=== PATIENT | male | born 1970 | race Caucasian/White ===

== ENCOUNTER → 2018-05-29 | Outpatient (CLI) | payer BC ==
--- NOTE | 2018-05-29 09:15 | RAD ---
Abdominal ultrasound dated 05/29/2018. No comparison available. CLINICAL INDICATION: Abdominal pain and distention. FINDINGS: Liver is of diffuse increased echogenicity, compatible with fatty infiltration. No apparent hepatic mass. Intrahepatic and extra hepatic biliary tree normal in caliber. The common bile duct measures 3 mm. Gallbladder normal in size and echogenicity. No gallbladder wall thickening or pericholecystic fluid. No gallstones are seen. Right kidney measures 10.5 cm in length. Left kidney measures 10.5 cm in length. No hydronephrosis. Spleen is homogeneous in echogenicity and measures 9.6 cm longitudinal. Limited visualized portions of pancreas aorta and IVC unremarkable. No significant ascites. IMPRESSION: 1. No acute sonographic abnormality. 2. Mild fatty infiltration of the liver. Electronically signed by: Oh Amaro MD (05/29/2018 9:12 AM) [id number]
== END | disposition home or self-care (01) ==
LOC: US 07:55
PROVIDERS: ATTEND Family Medicine
DX: K76.0 Fatty (change of) liver, not elsewhere classified (principal)
CPT/HCPCS: 76700

== ENCOUNTER → 2018-10-16 | Day surgery (SDC) | payer BC ==
[~2018-10-16] MED LIST: ALBUTEROL SULFATE 2.5 MG/3 ML NEBU. NEB PRN; ATROPINE 0.5 MG/5 ML DISP.SYRIN. IV PRN; CARV6.25 PO; CHOL10003 PO; FISH12002 PO; IV RINGERS SOLUTION,LACTATED 1,000 ML IV SCH; LIDOCAINE 2% PF Vial for OR 5 ML VIAL. ONE; MELA3TAB2 PO; NALOXONE 0.4 MG/ML VIAL. IV PRN; ONDANSETRON PF 4 MG/2 ML VIAL. IV PRN; PROPOFOL 40 ML IV ONE; TRAZ-85 PO
[2018-10-16 10:50] VITALS: BP 114/71
== END | disposition home or self-care (01) ==
LOC: SURG 09:34
PROVIDERS: ATTEND Internal Medicine Gastroenterology
DX: K29.70 Gastritis, unspecified, without bleeding (principal); I10 Essential (primary) hypertension; E78.5 Hyperlipidemia, unspecified; F32.9 Major depressive disorder, single episode, unspecified; Z88.5 Allergy status to narcotic agent; Z79.899 Other long term (current) drug therapy; G47.30 Sleep apnea, unspecified; Z98.890 Other specified postprocedural states; Z87.891 Personal history of nicotine dependence; Z83.71 Family history of colonic polyps; Z80.0 Family history of malignant neoplasm of digestive organs; Z72.89 Other problems related to lifestyle
CPT/HCPCS: 43239; J2704; J3010; J7120; J2001